=== PATIENT | male | born 2000 | race Two or more races ===

== ENCOUNTER 2023-07-01 17:05 | Emergency (ER) | payer MEDICAID ==
[~2023-07-01] VITALS: Ht 172.7 cm; Wt 102.3 kg
[2023-07-01 18:47] VITALS: BP 147/79; PULSE 102; TEMP 98.2
[2023-07-01 19:11] LABS: Urine Bacteria None Seen /hpf (None Seen)
[2023-07-01 19:14] LABS: Basophils # (auto) 0 10 ^3/uL (0-0.2); Basophils % (auto) 0.4 % (0.0-2.0); Eosinophils # (auto) 0.3 10 ^3/uL (0-0.8); Eosinophils % (auto) 3.2 % (0.0-7.0); Hematocrit 47.6 % (41.0-53.0); Hemoglobin 16.1 g/dL (13.5-17.5); Lymphocytes # (auto) 3.4 10 ^3/uL (0.4-5.4); Lymphocytes % (auto) 34.3 % (10.0-50.0); Mean Corpuscular Hemoglobin 28.9 pg (28.0-32.0); Mean Corpuscular Hgb Conc. 33.9 g/dL (32.0-36.0); Mean Corpuscular Volume 85.2 fL (80.0-100.0); Monocytes # (auto) 0.9 10 ^3/uL (0-1.3); Monocytes % (auto) 9.2 % (0.0-12.0); Neutrophils # (auto) 5.3 10 ^3/uL (1.6-8.6); Neutrophils % (auto) 52.9 % (37.0-80.0); Nucleated Red Blood Cells % 0.2 %; Red Blood Cells 5.58 10^6/uL (4.5-5.90); Red Cell Distribution Width 13.2 % (11.8-14.3); White Blood Cell 9.9 10^3/uL (4.4-10.8)
[2023-07-01 19:27] LABS: Urine Blood Negative /uL (Negative); Urine Clarity Clear (Clear); Urine Color Light-Yellow (Yellow); Urine Mucus FEW (None Seen); Urine Protein, UAD Negative (Negative); Urine Specific Gravity 1.018 (1.001-1.035); Urine Urobilinogen Normal (Negative); Urine WBC <1 /hpf (0 - 3); Urine pH 6.5 (5.0-9.0)
[2023-07-01 19:33] LABS: Alanine Aminotransferase 33 U/L (7-40); Albumin 4.8 g/dL (3.2-4.8); Alkaline Phosphatase 68 U/L (46-116); Anion Gap 11 (5-15); Aspartate Aminotransferase 24 U/L (13-40); BUN/Creatinine Ratio 21.1 (10.0-20.0); Blood Urea Nitrogen 20 mg/dL (9-23); Calcium 9.6 mg/dL (8.5-10.1); Carbon Dioxide 25 mmol/L (20-30); Chloride 104 mmol/L (98-107); Glucose 71 mg/dL (74-106); Potassium 4.1 mmol/L (3.5-5.1); Sodium 140 mmol/L (136-145)
[2023-07-01 19:34] LABS: Bilirubin, Total 0.5 mg/dL (0.2-1.0); Total Protein 6.8 g/dL (5.7-8.2)
[2023-07-01] MEDS ORDERED: ALBUAER3 IN (20:18)
[2023-07-01] MEDS ORDERED: ZOFR4T PO (20:18)
[2023-07-01] MEDS ORDERED: PRED20TA2 PO (20:18)
[2023-07-01] MEDS ORDERED: AZITTAB PO (20:18)
[2023-07-01] MEDS ORDERED: BENZ200C64 PO (20:18)
[2023-07-01 20:32] VITALS: RESP 20; O2SAT 94
[2023-07-01] MEDS: ALBUTEROL SULF 2.5 MG/0.5ML(0.5%) NEB SOLN NEB ONE (20:32)
[2023-07-01] MEDS: IPRATROPIUM BROM 0.5 MG/2.5ML INH SOL NEB ONE (20:32)
[2023-07-01] MEDS: DexAMETHasone SOD PHOS 10MG/1ML VIAL INJ IM ONE (21:36)
[2023-07-01] MEDS: ONDANSETRON ODT 4 MG TAB PO ONE (21:38)
[2023-07-01] MEDS: guaiFENesin-CODEINE Liq 5 ML UD PO ONE (21:39)
== END 2023-07-01 22:00 | disposition home or self-care (01) ==
LOC: ER 17:05
DX: Z77.120 Contact with and (suspected) exposure to mold (toxic) (principal); R05.9 Cough, unspecified; R51.9 Headache, unspecified; R06.02 Shortness of breath; R07.89 Other chest pain
CPT/HCPCS: 36415; 71045; 80053; 81001; 85025; 94640; 96372; 99284; J1100; J7644; Q0162